=== PATIENT | male | born 1985 | race Caucasian/White ===

== ENCOUNTER 2018-07-03 22:03 | Emergency (ER) | payer OTHER ==
[~2018-07-03] VITALS: Ht 172.7 cm; Wt 81.6 kg
--- NOTE | 2018-07-03 22:05 | NUR ---
Received pt. in bed 4. A/O x 2 and speaks clearly in full complete sentences. His breathe smells of alcohol. This writer technical publications asked this pt if he had been drinking and responded yes and stated he had 200 mg. of whiskey. Lying on supine on gurney with HOB elevated 30 degrees with siderails up x 2. Two other male significant others in room 4 with this pt. Awaiting to be seen by Dr. Bangura.
[2018-07-03] MEDS ORDERED: IV NORMAL SALINE 1000 ML BAG IV ONE (22:45)
[2018-07-03 23:04] LABS: BASOPHILS # (AUTO) 0.1 K/uL (0.0-8.0); BASOPHILS % (AUTO) 0.7 % (0.0-2.0); EOSINOPHILS # (AUTO) 0.1 K/uL (0.0-0.7); EOSINOPHILS % (AUTO) 1.1 % (0.0-7.0); HEMATOCRIT 51.4 % (36.7-47.1); HEMOGLOBIN 17.5 g/dL (12.5-16.3); LYMPHOCYTES # (AUTO) 2.8 K/uL (20.0-40.0); LYMPHOCYTES % (AUTO) 30.5 % (20.5-51.5); MEAN CORPUSCULAR HEMOGLOBIN 30.2 uug (23.8-33.4); MEAN CORPUSCULAR HGB CONC 34 g/dL (32.5-36.3); MEAN CORPUSCULAR VOLUME 88.8 fL (73.0-96.2); MONOCYTES # (AUTO) 0.4 K/uL (2.0-10.0); MONOCYTES % (AUTO) 4.2 % (0.0-11.0); NEUTROPHILS # (AUTO) 5.8 K/uL (1.8-8.9); NEUTROPHILS % (AUTO) 63.5 % (38.5-71.5); PLATELET COUNT (AUTO) 259 K/uL (152-348); RED BLOOD CELL COUNT(AUTO) 5.79 MIL/uL (4.06-5.63); WHITE BLOOD COUNT (AUTO) 9.2 K/uL (3.6-10.2)
--- NOTE | 2018-07-03 23:05 | NUR ---
Intravenous line started by this fiction and nonfiction prose writer to right antecubital one attempt pt. tolerated well. 0.9% Normal Saline 1000cc infusing at this time.
[2018-07-03 23:13] LABS: CARBON DIOXIDE 28 mmol/L (21-32); CHLORIDE 103 mmol/L (98-107); CREATININE 0.5 mg/dL (0.6-1.3); GLUCOSE 102 mg/dL (74-106); POTASSIUM 3.1 mmol/L (3.5-5.1); UREA NITROGEN, BLOOD 13 mg/dL (7-18)
[2018-07-03 23:19] LABS: ACETAMINOPHEN < 2.0 ug/mL (10-30); ALANINE AMINOTRANSFERASE 29 U/L (16-63); ALKALINE PHOSPHATASE 77 U/L (50-136); ASPARTATE AMINOTRANSFERASE 21 U/L (15-37); BILIRUBIN,DIRECT 0.2 mg/dL (0.0-0.2); BILIRUBIN,TOTAL 0.6 mg/dL (0.2-1.0); TOTAL PROTEIN, SERUM 7.8 g/dL (6.4-8.2)
[2018-07-03 23:27] LABS: ETHANOL 326 MG/DL (0-0)
--- NOTE | 2018-07-03 23:30 | NUR ---
Cherelle from lab telephoned and stated Alcohol level is 0.[address] Bangura made aware.
--- NOTE | 2018-07-03 23:45 | NUR ---
Pt. A/O x 4 transported to cat scan via [place]. 0.9% normal saline IV infusion completed at this time and vital signs: HR: 108, B/P: 118/83 R: 20 O2 Sat: 100% RA.
--- NOTE | 2018-07-03 23:58 | NUR ---
Pt. returned from cat scan via gurney to Bed 4B. A/O x 4 and speaking clearly in full complete sentences.
--- NOTE | 2018-07-04 00:04 | NUR ---
Pt. discharged from ED escorted out of accompanied by two significant males. Steady gait out of the ED A/O x 2 and speaks clearly in full complete sentences.
== END 2018-07-04 00:11 | disposition home or self-care (01) ==
LOC: ER 22:03
DX: F10.129 Alcohol abuse with intoxication, unspecified (principal); Y90.8 Blood alcohol level of 240 mg/100 ml or more
CPT/HCPCS: 36415; 70450; 71045; 72125; 80048; 80076; 82140; 84484; 85025; 85730; 93005; 99284; G0480 ×2; G0481; 70030-TC; A4663; J7030